=== PATIENT | male | born 2000 | race Hispanic/Latino ===

== ENCOUNTER 2024-10-03 20:44 | Inpatient (IN) | payer OTHER, SELFPAY ==
[~2024-10-03 20:44] MED LIST: Iopamidol 370 76% 100 ML VIAL ONE
[2024-10-03 23:01] LABS: Hematocrit 40.3 % (42.0-52.0); Hemoglobin 13.7 g/dL (14.0-18.0); Mean Corpuscular Hemoglobin 27.3 pg (27.0-31.0); Mean Corpuscular Volume 80.4 fL (78.0-98.0); Mean Platelet Volume 10.9 fL (7.4-10.4); Platelet Count 129 10x3/uL (130-400); RBC Distribution Width 13.6 % (11.5-14.5); Red Blood Cell (RBC) Count 5.01 mill/uL (4.70-6.10)
[2024-10-03 23:12] LABS: Bacteria/HPF None Seen HPF (None Seen); Bilirubin Negative (Negative); Blood, Urine Negative (Negative); CAUTI Indications for Culture Fever or rigors; Clarity Clear (Clear); Glucose, Urine (Dipstick) Normal (Negative); Ketone, Urine Negative (Negative); Leukocyte Negative Leu/uL (Negative); Nitrite Negative (Negative); Protein, Urine (Dipstick) 30 mg/dL (Neg-Trace); RBC/HPF 0-3 HPF (0-3); Specific Gravity, Urine 1.014 (1.002-1.036); Squamous Epithelial None Seen HPF (0-3); Urobilinogen 6 mg/dL (Less than 2)
[2024-10-03 23:13] LABS: Urine Culture Reflex No No
[2024-10-03 23:16] LABS: ALT (SGPT) 149 U/L (8-55); AST (SGOT) 90 U/L (5-34); Albumin 3.2 g/dL (3.5-5.0); Alkaline Phosphatase 83 U/L (40-110); Anion Gap 15 mmol/L (10-20); BUN (Urea Nitrogen) 12 mg/dL (8.9-20.6); Bilirubin, Total 0.6 mg/dL (0.2-1.2); Calc. Creatinine Clearance 0 mL/min (70-130); Calcium 9.2 mg/dL (7.8-10.44); Carbon Dioxide 23 mmol/L (22-29); Chloride 99 mmol/L (98-107); Estimated GFR 121; Glucose 121 mg/dL (70-105); Lipase 41 U/L (8-78); Potassium 3.5 mmol/L (3.5-5.1); Protein, Total 7.2 g/dL (6.0-8.3); Sodium 133 mmol/L (136-145)
[2024-10-03 23:20] LABS: Band 20 % (5-11); Lymphocytes 10 % (21-51); Metamyelocyte 1 % (0-0); Monocytes 5 % (0-10); Neutrophil 59 % (42-75); Platelet Adequacy Comment Platelets Normal; RBC Morphology Within Normal Limits; Reactive Lymphocytes 4 % (0-10)
[2024-10-03] MEDS ORDERED: diphenhydrAMINE 50 MG/ML VIAL ONE (23:48)
[2024-10-03] MEDS ORDERED: Metoclopramide HCl 10 MG (2 mL) VIAL ONE (23:48)
[2024-10-03 23:54] LABS: MONO NEGATIVE CONTROL ZONE White (Negative) (White); MONO POSITIVE CONTROL Pink Line (Positive) (PINK/RED); Mononucleosis NEGATIVE (NEGATIVE)
[2024-10-04] MEDS ORDERED: Sodium Chloride 0.9% 100 ML ONE (00:52)
[2024-10-04] MEDS ORDERED: Cefepime 2 GM VIAL ONE (00:52)
[2024-10-04] MEDS ORDERED: Vancomycin (BATCH) 2 GM/500 ML BAG ONE (01:13)
[2024-10-04] MEDS ORDERED: VANCOMYCIN IVPB PRN (02:53)
[2024-10-04] MEDS ORDERED: Ondansetron PF 4 MG/2 ML Vial IVP PRN ×2 (03:08→03:15)
[2024-10-04] MEDS ORDERED: Ondansetron ODT 4 MG TAB SL PRN (03:15)
[2024-10-04] MEDS ORDERED: Acetaminophen 325 MG TAB PO PRN (03:15)
[2024-10-04 03:51] LABS: Vancomycin, Random 32.7 ug/mL (See Comment)
[2024-10-04] MEDS ORDERED: Midazolam HCl 2 mg/2 ml Vial ONE (04:01)
[2024-10-04] MEDS ORDERED: Lidocaine 1% w/Epinephrine 1:100K 20 ML VIAL ONE (04:01)
[2024-10-04 06:11] LABS: CSF Source CSF; Tube # 4
[2024-10-04 06:12] LABS: Clarity Clear (Clear)
[2024-10-04 06:14] LABS: CSF Source CSF; Clarity Clear (Clear); Tube # 1
[2024-10-04 06:32] LABS: Cell Count Non Hematic 18 %; Lymphocytes 55 %; Segmented Neutrophils 27 %
[2024-10-04] MEDS: Cefepime 2 GM in Sodium Chloride 0.9% 100 ML IVPB SCH (08:41)
[2024-10-04] MEDS: Vancomycin (BATCH) 1.25 GM in Premix 1 BAG IVPB SCH ×2 (10:14→15:27)
[2024-10-04] MEDS: Acetaminophen 325 MG TAB PO PRN (11:45)
[2024-10-04 15:27] LABS: Chlam.trachomatis by PCR,Urine Not Detected (NotDetected); GC N.gonorrhoeae PCR,UrineVOID Not Detected (NotDetected)
[2024-10-04] MEDS ORDERED: VANCOMYCIN 1.25 GM/250 ML BAG 1.25 GM in Premix 1 BAG IVPB SCH (16:00)
[2024-10-04] MEDS: Ondansetron ODT 4 MG TAB PO PRN (21:00)
[2024-10-05] MEDS: Ketorolac Tromethamine 30 MG (1 mL) VIAL IVP SCH (01:02)
[2024-10-05 05:15] LABS: Hematocrit 43.1 % (42.0-52.0); Hemoglobin 14.2 g/dL (14.0-18.0); Mean Corpuscular HGB CONC 32.9 g/dL (32.0-36.0); Mean Corpuscular Hemoglobin 27.1 pg (27.0-31.0); Mean Corpuscular Volume 82.3 fL (78.0-98.0); Mean Platelet Volume 11.3 fL (7.4-10.4); Platelet Count 150 10x3/uL (130-400); RBC Distribution Width 14.3 % (11.5-14.5); Red Blood Cell (RBC) Count 5.24 mill/uL (4.70-6.10)
[2024-10-05 05:25] LABS: Anion Gap 17 mmol/L (10-20); BUN (Urea Nitrogen) 10 mg/dL (8.9-20.6); Calc. Creatinine Clearance 191 mL/min (70-130); Calcium 9.4 mg/dL (7.8-10.44); Carbon Dioxide 22 mmol/L (22-29); Chloride 103 mmol/L (98-107); Estimated GFR 122; Glucose 103 mg/dL (70-105); Potassium 3.6 mmol/L (3.5-5.1); Sodium 138 mmol/L (136-145)
[2024-10-05 05:26] LABS: Vancomycin, Random 32.4 ug/mL (See Comment)
[2024-10-05 06:29] LABS: #Basophils 0.04 10x3/uL (0.0-0.2); %Basophils 0.4 % (0.0-1.0); %Eosinophils 0.4 % (0.0-10.0); %Lymphocytes 36.4 % (21.0-51.0); %Monocytes 6.7 % (0.0-10.0); %Neutrophils 53.2 % (42.0-75.0)
[2024-10-05] MEDS ORDERED: VANCOMYCIN 1.25 GM/250 ML BAG 1.25 GM in Premix 1 BAG IVPB SCH (08:00)
[2024-10-05] MEDS: VANCOMYCIN 1.25 GM/250 ML BAG 1.25 GM in Premix 1 BAG IVPB SCH (08:55)
[2024-10-05] MEDS: FLU (Fluarix Triv) TS24-25(6MOS UP)/PF 45 MCG/0.5 ML Syringe IM ONE (10:12)
[2024-10-05 11:53] LABS: ALT (SGPT) 155 U/L (8-55); AST (SGOT) 102 U/L (5-34); Albumin 3.1 g/dL (3.5-5.0); Alkaline Phosphatase 93 U/L (40-110); Bilirubin, Direct 0.3 mg/dL (0.1-0.3); Bilirubin, Total 0.5 mg/dL (0.2-1.2); Protein, Total 7.2 g/dL (6.0-8.3)
[2024-10-05 17:22] LABS: HBsAg Index 0.26 S/CO (0-0.99); HIV (1/2) Antibody/Antigen NONREACTIVE (NonReactive); HIV 1/2 INDEX 0.07 S/CO (<1.00); Hep A IgM AB NONREACTIVE (NonReactive); Hep A IgM S/CO 0.31 S/CO (0-0.79); Hep B Core IgM Index 0.15 S/CO (0-0.79); Hep B Surf Ag NONREACTIVE S/CO (NonReactive); Hep C IgG Ab NONREACTIVE S/CO (NonReactive); Hep C Index 0.14 S/CO (0-0.79); Hepatitis B Core IgM Abs NONREACTIVE S/CO (NonReactive)
[2024-10-05 18:01] LABS: Thyroid Stimulating Hormone 0.4503 uIU/mL (0.35-4.94)
[2024-10-05 18:20] LABS: Ferritin 3032.87 ng/mL (22-322)
[2024-10-05] MEDS: Acetaminophen 325 MG TAB PO PRN (20:07)
[2024-10-06 05:55] LABS: Hematocrit 37.7 % (42.0-52.0); Hemoglobin 12.6 g/dL (14.0-18.0); Mean Corpuscular HGB CONC 33.4 g/dL (32.0-36.0); Mean Corpuscular Hemoglobin 26.9 pg (27.0-31.0); Mean Corpuscular Volume 80.4 fL (78.0-98.0); Mean Platelet Volume 10.8 fL (7.4-10.4); Platelet Count 177 10x3/uL (130-400); RBC Distribution Width 14.3 % (11.5-14.5); Red Blood Cell (RBC) Count 4.69 mill/uL (4.70-6.10)
[2024-10-06 05:57] LABS: #Basophils 0.09 10x3/uL (0.0-0.2); %Basophils 0.8 % (0.0-1.0); %Eosinophils 0.6 % (0.0-10.0); %Monocytes 6.2 % (0.0-10.0); %Neutrophils 47.3 % (42.0-75.0)
[2024-10-06 06:03] LABS: Anion Gap 15 mmol/L (10-20); BUN (Urea Nitrogen) 9 mg/dL (8.9-20.6); Calc. Creatinine Clearance 224 mL/min (70-130); Calcium 8.6 mg/dL (7.8-10.44); Carbon Dioxide 23 mmol/L (22-29); Chloride 102 mmol/L (98-107); Estimated GFR 128; Glucose 106 mg/dL (70-105); Potassium 3.8 mmol/L (3.5-5.1); Sodium 136 mmol/L (136-145)
[2024-10-06 06:05] LABS: Vancomycin, Random 8.7 ug/mL (See Comment)
[2024-10-06 12:12] LABS: Syphilis Antibody Nonreactive (Nonreactive); Syphilis Antibody Index 0.09 S/CO (<1.00 Non-Reactive)
[2024-10-06] MEDS: Vancomycin (BATCH) 1.75 GM in Premix 1 BAG IVPB SCH (12:49)
[2024-10-06 14:53] VITALS: BMI 33.2
[2024-10-07 05:50] LABS: Hematocrit 36.7 % (42.0-52.0); Hemoglobin 12.1 g/dL (14.0-18.0); Mean Corpuscular Hemoglobin 26.8 pg (27.0-31.0); Mean Corpuscular Volume 81.2 fL (78.0-98.0); Mean Platelet Volume 10.4 fL (7.4-10.4); Platelet Count 198 10x3/uL (130-400); RBC Distribution Width 14.4 % (11.5-14.5); Red Blood Cell (RBC) Count 4.52 mill/uL (4.70-6.10)
[2024-10-07 06:06] LABS: ALT (SGPT) 98 U/L (8-55); AST (SGOT) 63 U/L (5-34); Albumin 2.7 g/dL (3.5-5.0); Alkaline Phosphatase 72 U/L (40-110); Anion Gap 15 mmol/L (10-20); BUN (Urea Nitrogen) 9 mg/dL (8.9-20.6); Bilirubin, Total 0.3 mg/dL (0.2-1.2); Calc. Creatinine Clearance 225 mL/min (70-130); Calcium 8.6 mg/dL (7.8-10.44); Carbon Dioxide 23 mmol/L (22-29); Chloride 103 mmol/L (98-107); Estimated GFR 128; Globulin 3.9 g/dL (2.4-3.5); Glucose 105 mg/dL (70-105); Potassium 3.7 mmol/L (3.5-5.1); Protein, Total 6.6 g/dL (6.0-8.3); Sodium 137 mmol/L (136-145)
[2024-10-07 06:21] LABS: Band 14 % (5-11); Eosinophils 1 % (0-10); Hypochromia SLIGHT = 6-15 cells HPF (0-5); Lymphocytes 30 % (21-51); Monocytes 14 % (0-10); Neutrophil 35 % (42-75); Platelet Adequacy Comment Platelets Normal; Polychromasia SLIGHT = 2-3 cells HPF (0-2); Reactive Lymphocytes 7 % (0-10)
[2024-10-07] MEDS: Ibuprofen 200 MG TAB PO PRN (10:16)
[2024-10-08 05:54] LABS: Hematocrit 38.6 % (42.0-52.0); Hemoglobin 12.6 g/dL (14.0-18.0); Mean Corpuscular HGB CONC 32.6 g/dL (32.0-36.0); Mean Corpuscular Hemoglobin 26.8 pg (27.0-31.0); Mean Corpuscular Volume 82.1 fL (78.0-98.0); Mean Platelet Volume 10.2 fL (7.4-10.4); Platelet Count 205 10x3/uL (130-400); RBC Distribution Width 14.4 % (11.5-14.5)
[2024-10-08 05:55] LABS: ALT (SGPT) 105 U/L (8-55); AST (SGOT) 68 U/L (5-34); Albumin 2.8 g/dL (3.5-5.0); Alkaline Phosphatase 73 U/L (40-110); Anion Gap 13 mmol/L (10-20); BUN (Urea Nitrogen) 11 mg/dL (8.9-20.6); Bilirubin, Total 0.4 mg/dL (0.2-1.2); Calc. Creatinine Clearance 219 mL/min (70-130); Calcium 9.2 mg/dL (7.8-10.44); Carbon Dioxide 24 mmol/L (22-29); Chloride 105 mmol/L (98-107); Estimated GFR 127; Globulin 4.4 g/dL (2.4-3.5); Glucose 96 mg/dL (70-105); Protein, Total 7.2 g/dL (6.0-8.3); Sodium 138 mmol/L (136-145)
[2024-10-08 06:26] LABS: Band 12 % (5-11); Eosinophils 4 % (0-10); Lymphocytes 35 % (21-51); Metamyelocyte 2 % (0-0); Microcytosis SLIGHT = 6-15 cells HPF (0-5); Monocytes 5 % (0-10); Neutrophil 40 % (42-75); Platelet Adequacy Comment Platelets Normal; Polychromasia SLIGHT = 2-3 cells HPF (0-2); Reactive Lymphocytes 3 % (0-10); Target Cells SLIGHT = 2-5 cells HPF (0-1)
[2024-10-08 15:13] LABS: CMV IgM AB Less than 30.0 AU/mL (0.0-29.9)
[2024-10-08 18:37] LABS: HIV-1 Quantitative, RNA PCR <20 copies/mL (.)
[2024-10-09 05:12] LABS: EBV VCA IgM <36.0 U/mL (0.0-35.9)
[2024-10-09 05:45] LABS: #Basophils 0.06 10x3/uL (0.0-0.2); %Basophils 0.7 % (0.0-1.0); %Eosinophils 2.3 % (0.0-10.0); %Lymphocytes 44.3 % (21.0-51.0); %Monocytes 8.9 % (0.0-10.0); %Neutrophils 41.6 % (42.0-75.0); Hematocrit 37.5 % (42.0-52.0); Hemoglobin 12.2 g/dL (14.0-18.0); Mean Corpuscular HGB CONC 32.5 g/dL (32.0-36.0); Mean Corpuscular Hemoglobin 26.7 pg (27.0-31.0); Mean Corpuscular Volume 82.1 fL (78.0-98.0); Platelet Count 257 10x3/uL (130-400); RBC Distribution Width 14.3 % (11.5-14.5); Red Blood Cell (RBC) Count 4.57 mill/uL (4.70-6.10)
[2024-10-09 06:04] LABS: ALT (SGPT) 101 U/L (8-55); AST (SGOT) 59 U/L (5-34); Albumin 2.9 g/dL (3.5-5.0); Alkaline Phosphatase 69 U/L (40-110); Anion Gap 13 mmol/L (10-20); BUN (Urea Nitrogen) 13 mg/dL (8.9-20.6); Bilirubin, Total 0.3 mg/dL (0.2-1.2); CRP,High Sensitivity (Inhouse) 5.47 mg/dL (< or = 0.5); Calc. Creatinine Clearance 244 mL/min (70-130); Calcium 9.1 mg/dL (7.8-10.44); Carbon Dioxide 24 mmol/L (22-29); Chloride 104 mmol/L (98-107); Estimated GFR 131; Globulin 4.6 g/dL (2.4-3.5); Glucose 107 mg/dL (70-105); Potassium 3.9 mmol/L (3.5-5.1); Protein, Total 7.5 g/dL (6.0-8.3); Sodium 137 mmol/L (136-145)
[2024-10-09 16:00] VITALS: BP 129/83; TEMP 98.4
[2024-10-09 22:12] LABS: QuantiFERON-TB Gold Plus Negative (Negative)
[2024-10-10 17:02] LABS: ANA Symphony (Qualitative) Negative (Negative); ANA Symphony (Quantitative) 0.4 Ratio (< 0.7 Negative); EliA RAS New Method **** NEW METHOD ****; Rheumatoid Factor IgM Antibody 1.2 IU/mL (<3.5 Negative); dsDNA IgG Antibody 5.3 IU/mL (<10 Negative)
== END 2024-10-09 16:40 | disposition home or self-care (01) | DRG 864 ==
LOC: ERS 20:44 → T4-A 10-04 06:10 → OBSVTOIN 10-06 08:41
PROVIDERS: ADMIT Internal Medicine; ATTEND Family Medicine
DX: R50.9 Fever, unspecified (principal); I10 Essential (primary) hypertension; D72.829 Elevated white blood cell count, unspecified; M54.2 Cervicalgia; D69.6 Thrombocytopenia, unspecified; E66.9 Obesity, unspecified; Z68.33 Body mass index [BMI] 33.0-33.9, adult
CPT/HCPCS: 36415; 62270; 70450; 70551; 71046; 72141; 72146; 74177; 80048; 80053; 80074; 80076; 80202; 81001; 82728; 82945; 83520; 83605; 83690; 84157; 84443; 85025; 85060; 86038; 86141; 86225; 86308; 86480; 86644; 86645; 86664; 86665; 86780; 87040; 87070; 87086; 87205; 87389; 87428; 87491; 87536; 87591; 89051; 96361; 96374; 96375; 96376; G0378; J0692; J1200; J1885; J2250; J2765; J3370; Q0162; Q9967